=== PATIENT | female | born 2005 | race Caucasian/White ===

== ENCOUNTER 2023-12-29 01:59 | Emergency (ER) | payer BC, SELFPAY ==
[2023-12-29 02:05] VITALS: BP 132/82; PULSE 85; RESP 20; TEMP 36.7; O2SAT 99; BMI 22.1
[2023-12-29 02:16] LABS: Appearance Urine Clear (Clear); Bilirubin Urine Negative (Negative); Blood Urine Negative (Negative); Color Urine Yellow (Yellow); Glucose Urine Negative (Negative); Ketones Urine Negative (Negative); Leukocyte Esterase Urine 1+ (Negative); Nitrite Urine Negative (Negative); Protein Urine Negative (Negative); Specific Gravity Urine 1.025 (1.000-1.030); Urobilinogen Urine 0.2 (0.2-1.0); pH Urine 5.5 (5.0-8.5)
[2023-12-29 02:24] LABS: Ur HCG Qualitative* Negative (Negative)
[2023-12-29 02:27] LABS: Amorphous Sediment Urine Few; Bacteria Urine Few; Mucus Urine Moderate; RBC Urine 0-2 (0-2); Squamous Epithelial Cell Urine Few (None-Few); WBC Urine 0-2 (0-5)
--- NOTE | 2023-12-29 02:50 | CRLHL7_ITS ---
For Patients: As a result of the Century Cures Act, medical imaging exams and procedure reports are released immediately into your electronic medical record. You may view this report before your referring provider. If you have questions, please contact your health care provider. INDICATION: Chronic RLQ pain. TECHNIQUE: CT abdomen and pelvis without contrast. COMPARISON: None. FINDINGS: Detailed evaluation of the solid organs and vascular structures is limited by the absence of IV contrast. Within these limitations: Lower chest: Unremarkable. Liver: Normal in size and attenuation. No suspicious masses. Gallbladder and bile ducts: No stones or inflammation. No biliary dilatation. Pancreas: Unremarkable. No mass or inflammation. Spleen: Normal in size. No masses. Adrenal glands: Normal in size. No nodules. Kidneys: Normal in size. No suspicious masses, stones, or hydronephrosis. GI tract: Unremarkable. Normal in caliber. No sign of mass or inflammation. Normal appendix (). Vasculature: Abdominal aorta is normal in caliber. Lymph nodes: No lymphadenopathy. Peritoneum/Abdominal Wall: Unremarkable. No sign of mass or infiltration. No free air or significant free fluid. Pelvis: Bladder is partially decompressed. Pelvic viscera are unremarkable. Bones: Unremarkable for age. IMPRESSION: No acute findings in the abdomen, pelvis, or partially visualized chest. Normal appendix. Please note that all CT scans at this facility use dose modulation, iterative reconstruction, and/or weight-based dosing when appropriate to reduce radiation dose to as low as reasonably achievable. Dictated by Sukhwinder Benavidez MD @ 12/29/2023 3:24:30 AM (Electronically Signed)
--- NOTE | 2023-12-29 02:51 | ED.ABDPAIN ---
HPI - Abdominal Pain General Date Seen: 12/29/23 Chief Complaint: Abdominal Pain Stated Complaint: lower right abdominal pain Time Seen by Provider: 12/29/23 02:05 Source: patient and family Mode of arrival: ambulatory Limitations: no limitations History of Present Illness HPI narrative: Patient is a 18-year-old female brought in by her mother in the middle of the night with complaints of nine months of right lower quadrant abdominal pain. And she is a college student from [place] that will be returning to [place] tomorrow. She has had intermittent pain in the right lower quadrant since her appendectomy in [facility] last fall. This surgery was unremarkable. She had one follow-up visit and did have some pain at that time but was told that it was just normal. Over the past couple of weeks the pain is gotten worse. [place] but has not sought medical attention from her clinic provider. She has no nausea or vomiting. There is no relation to her menstrual cycle. Her menses are irregular. No difficulty with diarrhea or constipation. Food does not seem to affect this. No urinary symptoms. Related Data Home Medications ?Medication ?Instructions ?Recorded ?Confirmed spironolactone 100 mg tablet 100 mg PO QPM 12/29/23 12/29/23 Allergies Allergy/AdvReac Type Severity Reaction Status Date / Time No Known Drug Allergies Allergy Verified 12/29/23 02:08 Review of Systems Narrative Review of systems is outlined above otherwise noted to be negative. [facility] Medical History (Updated 12/29/23 @ 03:53 by Sukhwinder Dunn MD) Depression ?F32.A - Depression, unspecified (ICD-10) Anxiety ?F41.9 - Anxiety disorder, unspecified (ICD-10) Surgical History (Updated 12/29/23 @ 02:12 by Ravinder Gross RN) History of appendectomy ?Z90.49 - Acquired absence of other specified parts of digestive tract (ICD-10) Social History Smoking Status: Never smoker Second hand tobacco smoke exposure: No How often do you have a drink containing alcohol: never AUDIT-C Alcohol total score: 0 Non-prescribed substance use: denies use Exam Narrative: Exam Narrative: Vitals noted. HEENT: Conjunctiva clear. Neck is supple without adenopathy. Lungs: Clear to auscultation in all duvall. No wheezes, rales, rhonchi. Heart: Regular rate and rhythm without murmur. Abdomen: Soft and nontender. No guarding, rigidity, rebound. Bowel sounds are normal. No palpable masses. Extremities: No cyanosis or edema. Good distal pulses. Skin: No abnormalities noted of the exposed skin. Neurologic: Awake, alert, fully oriented. Neurologic exam is nonfocal. Const: Vital Signs, click to edit/add: Vital Signs - 24 hr 12/29/23 02:05 12/29/23 04:01 12/29/23 04:02 Temperature 98.0 F 98.0 F 98.0 F Pulse Rate [Right Pulse Oximeter] 85 79 79 Respiratory Rate 20 20 20 Blood Pressure [Ri ght Upper Arm] 132/82 124/74 124/74 Pulse Oximetry 99 99 Oxygen Delivery Me thod Room Air Room Air Course Course ED Course: Patient was seen and examined. Labs and CT scan are ordered. The patient is leaving for college tomorrow which I think is the main reason the opted to come to the ER tonight. Reevaluation(s) Reevaluation #1: CBC, BMP, LFTs are normal. Urinalysis is normal. Urine test is negative. CT scan of the abdomen and pelvis does not show an explanation for her pain. We discussed this could be related to some scar tissue in the area of her previous surgery. She certainly does not have a surgical abdomen. She will need to find a doctor in [place] to see if her pain does not improve. Vital Signs Vital signs: Initial Vital Signs Temperature 98.0 F 12/29/23 02:05 Temperature Source Temporal Artery Scan 12/29/23 02:05 Pulse Rate 85 12/29/23 02:05 Respiratory Rate 20 12/29/23 02:05 Blood Pressure 132/82 12/29/23 02:05 Blood Pressure Mean 98 12/29/23 02:05 Blood Pressure Position Sitting 12/29/23 02:05 Pulse Oximetry 99 12/29/23 02:05 Oxygen Delivery Method Room Air 12/29/23 02:05 Vital Signs Temperature 98.0 F 12/29/23 02:05 Pulse Rate 85 12/29/23 02:05 Respiratory Rate 20 12/29/23 02:05 Blood Pressure 132/82 12/29/23 02:05 Pulse Oximetry 99 12/29/23 02:05 Oxygen Delivery Method Room Air 12/29/23 02:05 Temperature 98.0 F 12/29/23 04:02 Pulse Rate 79 12/29/23 04:02 Respiratory Rate 20 12/29/23 04:02 Blood Pressure 124/74 12/29/23 04:02 Pulse Oximetry 99 12/29/23 04:01 Oxygen Delivery Method Room Air 12/29/23 04:01 MDM - Abdominal Pain Lab Data Labs: Lab Results 12/29/23 12/29/23 Range/Units 02:09 02:55 WBC 7.27 (4.50-11.00) K/uL RBC 4.43 (4.00-5.20) m/uL Hgb 12.7 (12.0-16.0) gm/dL Hct 38.1 (33.0-51.0) % MCV 86 (80-100) fL MCH 29 (26-34) pg MCHC 33 (32-36) gm/dL RDW Coeff of Nevin 12.5 (11.5-15.5) % Plt Count 336 (140-440) K/uL Neut % (Auto) 52.0 (42.0-72.0) % Lymph % (Auto) 38.9 (20-44) % [place] % (Auto) 6.1 (0.0-11.0) % Eos % (Auto) 2.3 (0.0-7.0) % Baso % (Auto) 0.6 (0.0-3.0) % Neut # (Auto) 3.78 (1.7-7.0) K/uL Lymph # (Auto) 2.83 (0.90-2.90) K/uL [place] # (Auto) 0.40 (0.00-0.90) K/UL Eos # (Auto) 0.17 (0.00-0.50) K/uL Baso # (Auto) 0.04 (0.00-0.30) K/uL Abs Immat Gran (auto) 0.01 (0.00-0.30) K/uL Imm/Tot Granulo (auto) 0.1 % Sodium 136 (135-149) mmol/L Potassium 3.8 (3.6-5.1) mmol/L Chloride 101 (96-114) mmol/L Carbon Dioxide 24 (20-32) mmol/L Anion Gap 11 (7-15) mEq/L BUN 12 (5-24) mg/dL Creatinine 0.5 (0.5-1.5) mg/dL Estimated Creat Clear 148.47 Estimated GFR 138 ml/min Glucose 96 (60-115) mg/dL Calcium 9.7 (8.4-10.6) mg/dL Total Bilirubin 0.7 (0.1-1.5) mg/dL Direct Bilirubin 0.2 (0.0-0.5) mg/dL AST 21 (12-35) U/L ALT 9 (4-35) U/L Alkaline Phosphatase 66 (40-150) U/L Total Protein 8.2 (6.0-8.3) g/dL Albumin 5.2 H (3.3-5.0) g/dL Urine Color Yellow (Yellow) Urine Appearance Clear (Clear) Urine pH 5.5 (5.0-8.5) Ur Specific [place] 1.025 (1.000-1.030) Urine Protein Negative (Negative) Urine Glucose (UA) Negative (Negative) Urine Ketones Negative (Negative) Urine Blood Negative (Negative) Urine Nitrite Negative (Negative) Urine Bilirubin Negative (Negative) Urine Urobilinogen 0.2 (0.2-1.0) Ur Leukocyte Esterase 1+ A (Negative) Urine RBC 0-2 (0-2) Urine WBC 0-2 (0-5) Ur Squamous Epith Cells Few (None-Few) Amorphous Sediment Few A (None) Urine Bacteria Few A (None) Urine Mucus Moderate A (None) Urine HCG, Qual Negative (Negative) Discharge Plan Discharge Clinical Impression: Chronic abdominal pain Patient Disposition: Home, Self-Care Condition: Stable Additional Instructions: Tylenol or ibuprofen every 6 hours as needed for pain. Stay hydrated. [place] high-fiber diet. Follow-up in the clinic if symptoms are worsening or not improving. Prescriptions: No Action spironolactone 100 mg tablet 100 mg PO QPM Follow Up/Referrals: Roxie Quezada MD [Primary Care Provider] - Stand Alone Forms: [facility] Info Instructions
[2023-12-29 03:02] LABS: Basophils Absolute Auto 0.04 K/uL (0.00-0.30); Basophils Percent Auto 0.6 % (0.0-3.0); Eosinophils Absolute Auto 0.17 K/uL (0.00-0.50); Eosinophils Percent Auto 2.3 % (0.0-7.0); Hematocrit 38.1 % (33.0-51.0); Hemoglobin* 12.7 gm/dL (12.0-16.0); Immature Granulocytes Abs Auto 0.01 K/uL (0.00-0.30); Immature Granulocytes Pct Auto 0.1 %; Lymphocytes Absolute Auto 2.83 K/uL (0.90-2.90); Lymphocytes Percent Auto 38.9 % (20-44); Mean Corpuscular HGB Conc 33 gm/dL (32-36); Mean Corpuscular Hemoglobin 29 pg (26-34); Mean Corpuscular Volume 86 fL (80-100); Monocytes Percent Auto 6.1 % (0.0-11.0); Neutrophils Absolute Auto 3.78 K/uL (1.7-7.0); Platelet Count* 336 K/uL (140-440); RDW Coefficient of Variation % 12.5 % (11.5-15.5); Red Blood Count 4.43 m/uL (4.00-5.20); White Blood Count* 7.27 K/uL (4.50-11.00)
[2023-12-29 03:03] LABS: Slide Review Reflex No
[2023-12-29 03:14] LABS: Albumin* 5.2 g/dL (3.3-5.0)
[2023-12-29 03:15] LABS: Chloride* 101 mmol/L (96-114); Potassium* 3.8 mmol/L (3.6-5.1); Sodium* 136 mmol/L (135-149)
[2023-12-29 03:17] LABS: Anion Gap 11 mEq/L (7-15); Aspartate Amino Transferase* 21 U/L (12-35); Bilirubin Direct* 0.2 mg/dL (0.0-0.5); Bilirubin Total* 0.7 mg/dL (0.1-1.5); Carbon Dioxide* 24 mmol/L (20-32); Creatinine* 0.5 mg/dL (0.5-1.5); Est. Creatinine Clearance* 148.47; Estimated Glomerular Filt Rate 138 ml/min; Total Protein* 8.2 g/dL (6.0-8.3)
[2023-12-29 03:18] LABS: Alanine Aminotransferase* 9 U/L (4-35); Alkaline Phosphatase* 66 U/L (40-150); Blood Urea Nitrogen* 12 mg/dL (5-24); Calcium* 9.7 mg/dL (8.4-10.6); Glucose* 96 mg/dL (60-115)
--- OUTSIDE RECORDS SUMMARY | 2023-12-29 03:23 | XMS_ITS | Clinical Summary ---
Author Organization [employer] [facility] Address [place], [place] [address] Care Team Providers Care Energy Attorney Name Role Phone Roxie Quezada MD Primary Care Provi edilson Allergies No known active allergies Medications Medication Sig Dispensed Refills Start Date End Date Status methylphenidate HCl (Concerta) 18 mg Extended-Release tabletIndications:A DHD, predominantly inattentive type Take 1 Tablet (18 mg) by mouth once daily. 90 Tablet 11/29/2022 Active spironolactone (ALDACTONE) 100 mg tablet Take 100 mg by mouth once daily. 12/20/2023 Active tretinoin (RETIN-A) 0.025 % cream Apply topically to affected area(s) at bedtime. 12/20/2023 Active lisdexamfetamine (Vyvanse) 30 mg capsuleIndications: ADHD, predominantly inattentive type Take 1 Capsule (30 mg) by mouth once daily in the morning. 90 Capsule 12/26/2023 Active FLUoxetine (PROZAC) 20 mg capsuleIndications: RICARDO (generalized anxiety disorder),Depressio n, unspecified depression type Take 1 Capsule (20 mg) by mouth once daily. 90 Capsule 1 12/26/2023 Active norethin jb-eth estrad-fe, 1-20 mg-mcg, (,) tabletIndications:A cne vulgaris Take 1 Tablet by mouth once daily. 84 Tablet 3 12/26/2023 Active lisdexamfetamine (VYVANSE) 30 mg capsuleIndications: RICARDO (generalized anxiety disorder) Take 1 Capsule (30 mg) by mouth once daily in the morning. 30 Capsule 12/26/2023 Active adapalene-benzoyl peroxide (EPIDUO) 0.1-2.5 % topical gelIndications:Acne , unspecified acne type Apply topically to affected area(s) once daily. 135 g 3 11/03/2021 4 Discontinue d(*Patient states no longer taking) clindamycin phosphate 1% topical 1 % external solutionIndications :Acne, unspecified acne type Apply topically to affected area(s) 2 times daily. 180 mL 3 11/03/2021 4 Discontinue d(*Patient states no longer taking) lisdexamfetamine (Vyvanse) 30 mg capsuleIndications: ADHD, predominantly inattentive type Take 1 Capsule (30 mg) by mouth every morning. 90 Capsule 06/22/2022 4 Discontinue d(*Patient states no longer taking) FLUoxetine (PROZAC) 20 mg capsuleIndications: RICARDO (generalized anxiety disorder),Depressio n, unspecified depression type Take 1 Capsule (20 mg) by mouth once daily. 90 Capsule 3 12/27/2022 4 Discontinue d(*Patient states no longer taking) norethin jb-eth estrad-fe, 1-20 mg-mcg, (,) tabletIndications:A cne vulgaris Take 1 Tablet by mouth once daily. 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 Encounters Date Type Department Care Team Description 12/26/2023 7:45 AM CDT Office Visit [facility] [address], [place] [id number] Roxie Quezada MD Medication Management (Vyvanse/ Prozac/ Concerta); STD (Wants testing done ); Well Child (18 year old) 12/26/2023 Travel from Last 3 Months Immunizations Name Administration Dates Next Due COVID-19 vaccine (SymcatBio NTech 30mcg/0.3mL) PF, MDV 04/29/2021,09/02/2020,08/12/2020 DTaP 03/22/2007, 5,2003,06/12,2003 HPV 9 (Gardasil 9) 04/03/2018,02/27/2016, 016 Hepatitis A (Peds) 03/22/2007,06/03/2006 Hepatitis B (Peds) 2003 Hepatitis B, Unspecified 2003,08/2003,2003,02/19 Hib Conjugate, Unspecified 05/22/2004,,2003,04/12 Inactivated Polio Vaccine 03/22/2007,,2003,04/12 Influenza Virus, Unspecified 02/20/2021 Influenza, IIV4 05/20/2020,04/03/2018,02/27/2016 Influenza, IIV4 (=>6mos) MDV 03/14/2017 Influenza,LAIV4 Live Intrana jackie (Flumist) 04/28/2015,04/28/2015,03/18/2014 MMR 11/22/2007,02/18/2004 Meningococcal Vaccine (Menveo) 10/11/2019 Meningococcal, Unspecified 03/18/2014 Pneumococcal conj 7-Valent (Prevnar 7) 0 08/18/2004,05/22/2004,2003,04/12 Tdap 12/19/2013 Varicella Vaccine 11/22/2007,02/18/2004 Family History Medical History Relation Name Comments Other Brother short bowel syn drome Psychiatric illness Brother ADHD Heart Disease Father [place] Other Maternal Grandfather blood c lots Hypertension Mother occasionally. t reated in the past Relation Name Status Comments Brother Alive Father Alive Maternal Grandfather (Age 80) Mother Alive Social History Tobacco Use Types Packs/Day Years Used Date Smoking Tobacco: Never Smokeless Tobacco: Never Tobacco Cessation:Counseling Given: No Comments:no exposure Alcohol Use Standard Drinks/Week Comments Yes 0 (1 standard drink = 0.6 oz pur e alcohol) Reg PHQ-2 Answer Date Recorded PHQ-2 TOTAL SCORE 2 12/26/2023 Social Connections Answer Date Recorded Frequency of Communication with Friends and Fami ly 0 12/26/2023 Financial Resource Strain Answer Date R ecorded Difficulty of Paying Living Expenses 3 12/26/2023 Difficulty of Paying Living Expenses Not on file 12/26/2023 Food Insecurity Answer Date Recorded Worried About Running Out of Food in the Last Ye ar 1 12/26/2023 Transportation Needs Answer Date Record ed Lack of Transportation (Medical) 1 12/26/2023 Housing Stability Answer Date Recorded Unable to Pay for Housing in the Last Year 1 12/26/2023 Sex and Gender Information Value Date Recorded Sex Assigned at Not on file Gender Identity Not on file Sexual Orientation Not on file Obstetrics History Para Term AB IAB SAB Ectopic Multiple Livin g Live Births 0 0 0 0 0 0 0 0 0 0 0 Last Filed Vital Signs Vital Sign Reading Time Taken Comments Blood Pressure 102/72 12/26/2023 7:53 AM CDT Pulse 78 12/26/2023 7:53 AM CDT Temperature 36.6 ??C (97.9 ??F) 10/21/2021 3:29 PM CD T Respiratory Rate 12 10/21/2021 3:29 PM CDT Oxygen Saturation 96% 12/26/2023 7:53 AM CDT Inhaled Oxygen Concentration - - Weight 57.6 kg (127 lb) 12/26/2023 7:53 AM CDT Height 161.9 cm (5' 3.74) 12/26/2023 7:53 AM CD T Body Mass Index 21.98 12/26/2023 7:53 AM CDT Plan of Treatment Health Maintenance Due Date Last Done Comments COVID-19 vaccine series ( season) 2023 05/05/2022, 04/29/2021, 09/02/2020, Additional history exists Tetanus booster 12/20/2023 12/19/2013 Influenza for age 9-49 01/08/2024 , 05/20/2020, 04/03/2018, Additional history exists BMI (ht and wt on same day) for age 18+ 12/25/2024 12/26/2023, 09/23/2022, 09/17/2022, Additional history exists Chlamydia for age 16-24 12/25/2024 12/26/19 24, 10/21/2021, 05/20/2020 Depression screening for age 12+ 12/25/2024 12/26/2023, 09/17/2022, 12/24/2021, Additional history exists Well Child Check for age 3-20 12/25/2024 12/26/2023, 12/04/2020, 10/11/2019, Additional history exists Pneumococcal series for age 6-64 Aged Out 08/18/2004, 05/22/2004, 2003, Additional history exists No longer eligible based on patient's age to complete this topic Tdap Completed 12/19/2013 HPV series for age 9-26 Completed 04/03/20 18, 02/27/2016, 01/02/2016 Meningococcal series for age 11-21 Completed 10/11/2019, 03/18/2014 HIV for age 15-65 Completed 12/26/2023 Hepatitis C screening for age 18-79 Completed 12/26/2023 Procedures Procedure Name Priority Date/Time Associated Diagnosis Comments CHOL/HDL RATIO Routine 12/26/2023 8:29 AM CDT Screening for lipid disorders TREPONEMA PALLIDUM Routine 12/26/2023 8:29 AM CDT Screening examination for STI ANTI HCV Routine 12/26/2023 8:29 AM CDT Screening examination for STI GC CHLAMYDIA TRACH PROBE Routine 12/26/2023 8:29 AM CDT Screening for STD (sexually transmitted disease) ANTI HIV 1/2 Routine 12/26/2023 8:29 AM CDT Screening for HIV (human immunodeficiency virus) from Last 3 Months Results * TREPONEMA PALLIDUM (12/26/2023 8:29 AM CDT) TREPONEMA PALLIDUM Non-Reacti ve Non-Reacti ve 12/26/2023 4:49 PM CDT [facility] Blood BLOOD SPECIMEN / Unknown Venipuncture / Unknown 12/26/2023 8:29 AM CDT 12/26/2023 8:29 AM CDT Roxie Quezada MD SEND OUTS Performing Organization Address [facility]/ZIP Co de Phone Number [facility] [address] [place] [address], [place] * GC CHLAMYDIA TRACH PROBE [[id number]] - urine (12/26/2023 8:29 AM CDT) CHLAMYDIA PROBE Negative 7:56 PM CDT [facility] N GONORRHOEAE PROBE Negative 12/26/2023 7:56 PM CDT [facility] Other URINE SPECIMEN / Unknown Non-Blood / Unknown 12/26/2023 8:29 AM CDT 12/26/2023 8:29 AM CDT Roxie Quezada MD MICROBIOLOG Y Performing Organization Address [facility] Co de Phone Number [facility] [address] [place] [address], [place] * CHOL/HDL RATIO [[id number]] (12/26/2023 8:29 AM CDT) CHOLESTEROL,TOTA L 199 100 - 199 mg/dL 12/26/2023 4:49 PM CDT [facility] Comment: Cholesterol, Total Reference Ranges Desirable <200 mg/dL Borderline 200-239 mg/dL High >=240 mg/dL HDL CHOLESTEROL 61 >40 mg/dL 4:49 PM CDT [facility] CHOL/HDL RATIO 3.26 <4.50 12/26/2023 4:49 PM CDT [facility] NON-HDL CHOLESTEROL 138 <145 mg/dl 12/26/2023 4:49 PM CDT [facility] Blood BLOOD SPECIMEN / Unknown Venipuncture / Unknown 12/26/2023 8:29 AM CDT 12/26/2023 8:29 AM CDT Roxie Quezada MD CHEMISTRY Performing Organization Address [facility] Co de Phone Number [facility] [address] [place] [id number], [place] * ANTI HCV (12/26/2023 8:29 AM CDT) Pathologist [facility] HEPATITIS C ANTIBODY Non-Reacti ve Non-React jana 12/26/2023 4:21 PM CDT [facility] Comment:Please note, per www .CDC.gov: If a patient is known to be at high risk of HCV infection, or is symptomatic, and the physician's suspicion of HCV infection is high, HCV RNA testing is often employed and is of diagnostic value, even after an initial negative anti-HCV test result. Blood BLOOD SPECIMEN / Unknown Venipuncture / Unknown 12/26/2023 8:29 AM CDT 12/26/2023 8:29 AM CDT Roxie Quezada MD SEND OUTS Performing Organization Address [facility] de Phone Number [facility] [address] [place] [id number], [place] * ANTI HIV 1/2 [[id number]] (12/26/2023 8:29 AM CDT) Pathologist [facility] HIV-1/HIV-2 SCREEN Non-Reacti ve Non-Reacti ve 12/26/2023 4:38 PM CDT [facility] Comment:HIV-1 p24 and HIV-1/ HIV-2 Ab Not Detected. Blood BLOOD SPECIMEN / Unknown Venipuncture / Unknown 12/26/2023 8:29 AM CDT 12/26/2023 8:29 AM CDT Roxie Quezada MD SEND OUTS [facility] [address] [place] [address], [place] from Last 3 Months Care Teams Energy Attorney Relationship Specialty Start Date End Date Roxie Quezada MD [address] [place] [address] PCP - General Pediatric 01/30/15
[2023-12-29 04:01] VITALS: BP 124/74; PULSE 79; RESP 20; TEMP 36.7; O2SAT 99
[2023-12-29 04:02] VITALS: BP 124/74; PULSE 79; RESP 20; TEMP 36.7
== END 2023-12-29 04:02 | disposition home or self-care (01) ==
PROVIDERS: Emergency Provider Family Medicine; PCP Pediatrics
DX: R10.9 Unspecified abdominal pain (principal); G89.29 Other chronic pain
CPT/HCPCS: 36415; 74176; 80048; 80076; 81001; 81025; 85025; 87086; 99283; 99284